=== PATIENT | male | born 1965 | race Two or more races ===

== ENCOUNTER 2016-06-04 13:58 | Emergency (ER) | payer SELFPAY ==
[~2016-06-04] VITALS: Ht 175.3 cm; Wt 81.6 kg
[2016-06-04] MEDS ORDERED: IOHEXOL 300 MG/ML 100ML BOTTLE IJ ONE (14:07)
[2016-06-04 14:10] VITALS: BP 120/72
== END 2016-06-04 17:23 | disposition expired ==
LOC: EDBD 14:03 → ER 14:03
DX: I46.9 Cardiac arrest, cause unspecified (principal); S42.023A Displaced fracture of shaft of unspecified clavicle, initial encounter for closed fracture; S27.0XXA Traumatic pneumothorax, initial encounter; T79.7XXA Traumatic subcutaneous emphysema, initial encounter; V27.4XXA Motorcycle driver injured in collision with fixed or stationary object in traffic accident, initial encounter; Y93.89 Activity, other specified; Y99.8 Other external cause status; Y92.410 Unspecified street and highway as the place of occurrence of the external cause
CPT/HCPCS: 51702; 71010; 92950; 93005